=== PATIENT | male | born 1970 | race Caucasian/White ===

== ENCOUNTER 2018-01-28 16:46 | Emergency (ER) | payer OTHER ==
[~2018-01-28] VITALS: Ht 172.7 cm; Wt 65.3 kg
[~2018-01-28 16:46] MED LIST: NEURONTIN300 MG PO; NOHOMEMEDS; VIBRID PO
[2018-01-28] MEDS ORDERED: DESYREL100 MG PO (16:56)
[2018-01-28] MEDS ORDERED: GABAPENTIN400 MG PO (16:56)
[2018-01-28] MEDS ORDERED: ZOLOFT25 MG PO (16:57)
[2018-01-28 17:51] VITALS: BP 109/73
== END 2018-01-28 18:23 | disposition home or self-care (01) ==
LOC: EME 16:46
DX: F10.129 Alcohol abuse with intoxication, unspecified (principal); F17.200 Nicotine dependence, unspecified, uncomplicated
CPT/HCPCS: 99281; 99284